=== PATIENT | female | born 1985 | race Caucasian/White ===

== ENCOUNTER 2021-09-05 14:45 | Emergency (ER) | payer OTHER ==
[~2021-09-05 14:45] MED LIST: AUGMENTIN 875-1 EACH PO; CLEOCIN300 MG PO; CYCLOBENZAPRINE10 MG PO; HYCODAN5 ML PO; MEDROL 4MG DOSEP4 MG PO; TESSALON PERLE100 MG PO; VENTOLIN HFA IN18 GM INH
[2021-09-05] MEDS ORDERED: KEFLEX250 MG PO (16:03)
== END 2021-09-05 16:15 | disposition home or self-care (01) ==
LOC: FER 14:45
DX: S61.301A Unspecified open wound of left index finger with damage to nail, initial encounter (principal); W31.89XA Contact with other specified machinery, initial encounter; Y92.009 Unspecified place in unspecified non-institutional (private) residence as the place of occurrence of the external cause; Z28.310 Unvaccinated for COVID-19
CPT/HCPCS: 99283